=== PATIENT | female | born 1970 | race Hispanic/Latino ===

== ENCOUNTER → 2022-07-13 | Outpatient (CLI) | payer OTHER | END | disposition home or self-care (01) | LOC: RAH 09:25 | PROVIDERS: ATTEND Obstetrics & Gynecology | DX: R92.8 Other abnormal and inconclusive findings on diagnostic imaging of breast (principal); R92.1 Mammographic calcification found on diagnostic imaging of breast | CPT/HCPCS: 76641; 77065 ==

== ENCOUNTER 2022-11-29 11:00 | Observation (INO) | payer OTHER ==
[~2022-11-29] VITALS: Ht 152.4 cm; Wt 93.2 kg
[2022-12-21 14:30] LABS: BASOPHILS % (AUTO) 0.5 % (0.0-5.0); EOSINOPHILS % (AUTO) 1.6 % (0.0-8.0); HEMATOCRIT 42.9 % (36-48); LYMPHOCYTES % (AUTO) 25.7 % (21.0-51.0); MEAN CORPUSCULAR HEMOGLOBIN 27.9 pg (27.0-33.0); MEAN CORPUSCULAR HGB CONC 32.2 g/dL (32.0-36.0); MEAN CORPUSCULAR VOLUME 86.8 fL (79-99); MONOCYTES % (AUTO) 7.7 % (3.0-13.0); NEUTROPHILS % (AUTO) 63.8 % (40.0-77.0); PLATELET COUNT (AUTO) 252 K/uL (130-400); RED BLOOD CELL COUNT(AUTO) 4.94 MIL/uL (4.00-5.50); WHITE BLOOD COUNT (AUTO) 8.4 K/uL (4.8-10.8)
[2022-12-21] MEDS ORDERED: LOSA25TA41 PO (14:39)
[2022-12-21 14:53] LABS: APPEARANCE,URINE CLEAR (CLEAR); BILIRUBIN,URINE NEGATIVE (NEGATIVE); COLOR,URINE LIGHT-YELLOW (YELLOW); GLUCOSE, URINE (UA) NEGATIVE (NEGATIVE); KETONES,URINE NEGATIVE (NEGATIVE); LEUKOCYTE ESTERASE ,URINE NEGATIVE Leu/uL (NEGATIVE); NITRATE,URINE NEGATIVE (NEGATIVE); PROTEIN,URINE NEGATIVE (NEGATIVE); UROBILINOGEN,URINE 0.2 mg/dL (0.2-1.0)
[2022-12-21 15:04] LABS: BACTERIA,URINE RARE /HPF (None Seen); MUCUS,URINE RARE LPF (None Seen); OTHER CASTS, URINE 1 /LPF (None Seen); SQUAMOUS EPITHELIAL CELL,UR FEW /HPF (0-2); WBC,URINE 0-1 /HPF (0-1)
[2022-12-21 15:14] VITALS: BP 178/66
[2022-12-21] MEDS: DEXTROSE 5 %-0.45 % NACL 1,000 ML IV SCH (16:30)
[2022-12-21] MEDS ORDERED: ONDANSETRON 4MG INJ IVP PRN (16:30)
[2022-12-25] VITALS (19 sets, daily range): BP systolic 123–168; BP diastolic 47–79
[2022-12-25] MEDS ORDERED: CEFAZOLIN SODIUM 1 GM VIAL IVPB SCH (06:00)
[2022-12-25] MEDS ORDERED: LACTATED RINGERS 1000ML 1,000 ML IV ONE (06:31)
[2022-12-25] MEDS ORDERED: HYDROMORPHONE 1 MG INJ ONE (07:16)
[2022-12-25] MEDS ORDERED: FAMOTIDINE 20MG VIAL IV ONE (07:16)
[2022-12-25] MEDS ORDERED: SUCCINYLCHOLINE CHLORIDE 20 MG/ML 10 ML VIAL ONE (07:30)
[2022-12-25] MEDS ORDERED: MIDAZOLAM HCL 1 MG/ML 2ML VIAL ONE (07:30)
[2022-12-25] MEDS ORDERED: FENTANYL CITRATE PF 50 MCG/1 ML 2ML VIAL ONE ×2 (07:31→11:07)
[2022-12-25] MEDS ORDERED: GLYCOPYRROLATE 1 MG/5 ML SYRINGE ONE (07:31)
[2022-12-25] MEDS ORDERED: ROCURONIUM 10MG/1ML SYR 10 MG/ML ML ONE (07:31)
[2022-12-25] MEDS ORDERED: PROPOFOL 10 MG/ML 20ML VIAL IV ONE (07:31)
[2022-12-25] MEDS ORDERED: PHENYLEPHRINE HCL 10 MG/ML 1ML VIAL IV ONE (07:32)
[2022-12-25] MEDS ORDERED: CEFAZOLIN SODIUM 2 GM VIAL IVPB ONE (08:20)
[2022-12-25] MEDS ORDERED: ONDANSETRON 4MG INJ ONE (08:43)
[2022-12-25] MEDS ORDERED: NEOSTIGMINE 5MG/5ML SYR IV ONE (10:26)
[2022-12-25] MEDS ORDERED: IBUPROFEN 600 MG TABLET PO PRN (13:30)
[2022-12-25] MEDS ORDERED: SIMETHICONE 80 MG TAB.CHEW PO PRN (13:30)
[2022-12-25] MEDS ORDERED: BISACODYL 10 MG SUPP.RECT RC PRN (13:30)
[2022-12-25] MEDS ORDERED: PROMETHAZINE HCL 25 MG/ML 1ML AMPULE IM PRN (13:30)
[2022-12-25] MEDS: MEPERIDINE-PF 75 MG/ML SYG IM PRN ×2 (13:56→19:48)
[2022-12-25] MEDS: PROMETHAZINE HCL 25 MG/ML 1ML AMPULE IM PRN ×2 (13:56→19:47)
[2022-12-25] MEDS ORDERED: EPHEDRINE SULFATE 50 MG/ML AMPULE IVP PRN (14:00)
[2022-12-25] MEDS ORDERED: NALOXONE HCL 0.4 MG/1 ML ML IVP PRN ×2 (14:00)
[2022-12-25] MEDS ORDERED: DiphenhydrAMINE HCL 50 MG/ML VIAL IVP PRN (14:00)
[2022-12-25] MEDS: DEXTROSE 5 %-0.45 % NACL 1,000 ML IV SCH ×2 (16:30→22:12)
[2022-12-25] MEDS: ACETAMINOPHEN WITH CODEINE 1 TAB TAB PO PRN ×2 (17:35→23:43)
[2022-12-25] MEDS: DOCUSATE SODIUM 100 MG CAP PO PRN (23:37)
[2022-12-26 02:29] VITALS: BP 126/69
[2022-12-26] MEDS ORDERED: HYDROCODONE/ACETAMINOPHEN 5/325 MG TAB PO PRN (02:30)
[2022-12-26 05:42] LABS: HEMATOCRIT 34.8 % (36-48); MEAN CORPUSCULAR HEMOGLOBIN 27.9 pg (27.0-33.0); MEAN CORPUSCULAR HGB CONC 31.9 g/dL (32.0-36.0); MEAN CORPUSCULAR VOLUME 87.4 fL (79-99); RED BLOOD CELL COUNT(AUTO) 3.98 MIL/uL (4.00-5.50); RED CELL DISTRIBUTION WIDTH 13.9 % (11.0-15.5)
[2022-12-26] MEDS: DEXTROSE 5 %-0.45 % NACL 1,000 ML IV SCH (06:25)
[2022-12-26 07:55] VITALS: BP 149/87
[2022-12-26] MEDS: DOCUSATE SODIUM 100 MG CAP PO PRN (09:24)
[2022-12-26] MEDS: IBUPROFEN 800 MG TAB PO PRN ×2 (09:25→14:04)
[2022-12-26 12:01] VITALS: BP 147/79
[2022-12-26] MEDS ORDERED: ACET-2079 PO (13:37)
== END 2022-12-26 14:50 | disposition home or self-care (01) ==
LOC: DAH 12-25 05:33 → EDSTATUS 12-25 12:00 → WSH 12-25 12:51
PROVIDERS: ADMIT Obstetrics & Gynecology; ATTEND Obstetrics & Gynecology
DX: D25.9 Leiomyoma of uterus, unspecified (principal); Z20.822 Contact with and (suspected) exposure to COVID-19; N92.1 Excessive and frequent menstruation with irregular cycle; N73.6 Female pelvic peritoneal adhesions (postinfective); I10 Essential (primary) hypertension; K21.9 Gastro-esophageal reflux disease without esophagitis; Z79.899 Other long term (current) drug therapy; Z90.710 Acquired absence of both cervix and uterus
CPT/HCPCS: 84703; 85025; 86850 ×2; 86900 ×2; 86901 ×2; 87426; 81001; 36415 ×3; 58552; 96374; 96372; 85027; A6260; A4510; A4663; J7030; A4351; A4344; A4215 ×2; J7120; J3490 ×2; J3010 ×2; J0690 ×2; J1170; J2710; J0330; J2550 ×2; J2250; J2704; J2405 ×2; J2175 ×2; J2370; A4649 ×4; C1769 ×2; A4615; A4223; A4222; A4221; A4600; G0378 ×4